=== PATIENT | male | born 1955 | race Caucasian/White ===

== ENCOUNTER 2017-04-09 08:16 | Inpatient (IN) ==
[~2017-04-09 08:16] MED LIST: HEPARIN 5,000 UNIT/1 ML VIAL ONE; HYDROmorphone 2 MG/1 ML VIAL ONE; LIDOCAINE 1% 20 ML VIAL ONE; MIDAZOLAM 2 MG/2 ML VIAL ONE
[2017-04-09] MEDS ORDERED: TIROFIBAN 5,000 MCG/100 ML PREMIX IV ONE (08:17)
[2017-04-09] MEDS ORDERED: TIROFIBAN 5,000 MCG/100 ML PREMIX IV SCH (08:22)
[2017-04-09] MEDS ORDERED: NITROGLYCERIN SL 0.4 MG TABLET SL PRN (08:42)
[2017-04-09] MEDS ORDERED: ZALEPLON 5 MG CAPSULE PO PRN (08:42)
--- NOTE | 2017-04-09 08:51 | Cardiology History & Physical ---
Assessment and Plan (1) STEMI (ST elevation myocardial infarction) Status: Acute Assessment and plan: 1. 62-year-old WM with hypertension, NIDDM, who presented with 2 days of back pain and then awakened at 5:30 AM with severe back pain radiating to the chest with shortness of breath diaphoresis diagnosed with inferior AK at [facility] transferred here for emergent catheterization 2. He arrived having received Brilinta, aspirin, and heparin 3. At catheterization he had critical 99% discrete distal RCA stenosis with VERN-3 flow, stented with 2.5 x 20 drug-eluting stent with excellent result ( after dilating proximal portion of the stent to 3.1 mm) 4. Add low-dose beta-reji and high intensity statin 5. Admit to CCU for close observation 6. Normal ejection fraction with mild inferobasal hypokinesis noted on LV gram 7. Will complete one bag of Aggrastat Current Visit: Yes (2) HTN (hypertension) Status: Acute Current Visit: Yes (3) Diabetes Status: Acute Current Visit: Yes (4) Prostate CA Status: Acute Current Visit: Yes (5) Peptic ulcer Status: Acute Current Visit: Yes History of Present Illness Chief complaint: cp History of present illness: Mr. Love is a 62 year old male who is in his usual state of health until the last 2 days he has had upper back pain which has been constant. At 530 this morning woke up with shortness of breath more severe back pain and slight involvement of his chest as well as diaphoresis. It did not radiate. He does not report presyncope or syncope. At [facility] he was diagnosed with inferior STEMI and transferred for emergent catheterization. Allergies Allergy/AdvReac Type Severity Reaction Status Date / Time diazepam [From Valium] Allergy Verified 04/09/17 08:06 morphine Allergy Verified 04/09/17 08:06 Cardiology Physical Exam - Constitutional Vitals: Intake and Output 04/08/17 04/09/17 04/09/17 23:59 07:59 15:59 Other: Weight 92.533 kg Patient Weight 04/09/17 23:59 Weight 92.533 kg General appearance: normal weight, mild distress - Head Head exam: Present: normal inspection, normocephalic, atraumatic - Cardiovascular Cardiovascular exam: Present: regular rate and rhythm - GI/Abdominal GI/Abdominal exam: Present: soft. Absent: tenderness - Extremities Exam Extremities exam: Absent: edema - Neurological Exam Neurological exam: Present: alert, oriented X3, normal gait - Psychiatric Psychiatric exam: Present: normal affect, normal mood
--- NOTE | 2017-04-09 09:07 | Cardiac Catheterization ---
Date of Procedure:: 04/09/17 Post-op diagnosis: same Procedure: Procedure performed: 1. Left heart catheterization 2. Coronary angiography 3. Left ventriculography 4. Stenting of distal right coronary artery with drug-eluting stent for acute WA/STEMI (2.5 x 20 Synergy dilated to 3.1 mm proximally) 5. Right femoral arteriotomy with Angio-Seal device Brief clinical summary: Mr. Solitario 62-year-old who presented with inferior WA directly to the [facility] transfer. Description of procedure: After obtaining informed consent, the right groin was prepped and draped in the usual sterile fashion. Next a short 6 Estonian sheath was placed in the right femoral artery using a modified Seldinger technique, after the patient received IV sedation and local anesthetic. Next a JL4 catheter was advanced over a guidewire under fluoroscopic guidance, and was engaged to the left coronary artery after which angiography was performed in multiple views. This was then removed over a wire, and a hockey-stick guiding catheter was advanced in similar fashion, and was engaged to the right coronary artery after which angiography was performed in multiple views. After this percutaneous coronary mention was performed as described below. Next a bent pigtail catheter was advanced into the left ventricle, where hemodynamic measurements were obtained, and left ventriculography was performed. An angiogram of the sheath showed that it was inserted in the right common femoral artery in a vessel suitable for closure. Hemostasis was obtained with Angio- Seal device with no residual bleeding. The patient was transferred from the director of labor and delivery in good condition without complication. Percutaneous coronary mention: The patient by the Tele[facility] on heparin and Brilinta as well as aspirin. I gave an additional 3000 of heparin as he only got 4000 prior to transfer. His ACT was therapeutic in the 254 range. A pro- water wire was advanced across the critical distal RCA disease without difficulty. Next a 2.25 x 20 compliant balloon was advanced across her disease was dilated to just above nominal pressures at a slow rate. This was then removed and a 2.5 x 20 Synergy drug-eluting stent was advanced across her disease and dilated to nominal pressures. I performed low-pressure 2-1/2 purnima inflation at the distal edge due to slight size mismatching. This was then removed and a 3.0 x 15 compliant balloon was advanced to the proximal portion the stent was dilated to nearly 3.1 mm. There is very good radiographic result. Just past the stent was very hyperdynamic area. Coronary angiography: The left main coronary is no result of her disease. Left anterior descending artery is of average caliber wraps around the apex. There is a 60% proximal stenosis, as well as a 60% mid stenosis and 80% discrete distal LAD stenosis. There is one average caliber long high diagonal branch. There is a tiny second diagonal. Circumflex is of average caliber and gives off only 1 very large obtuse marginal branch which is the termination of the vessel. There are mild to moderate regular is only. Right coronary artery is the dominant vessel is of average caliber. There is a discrete 99% distal RCA stenosis with a thinner than average PDA in a couple of very thin posterolaterals. There is VERN II flow prior intervention. There is a significant size mismatch proximal to the lesion and distal to lesion with dilation of the vessel much more distally which may be due to an ectatic region. Left ventriculography: Left ventricle is normal size with normal LV systolic function. Ejection fraction 60% with mild inferobasal hypokinesis. There is no significant mitral regurgitation. Impression: 1. Normal LV systolic function ejection fraction is to be 60% with mild inferobasal hypokinesis 2. Right dominant system 3. Coronary artery disease as described above including but not limited to: A. Diffuse LAD disease with 60% proximal and mid stenosis as well as 80% distal stenosis B. Mild to moderate irregularity is only in the circumflex system C. Discrete 99% distal RCA stenosis 4. Status post successful stenting of critical distal RCA lesion (culprit for STEMI) with 2.5 x 20 drug-eluting stent with excellent result after post dilating proximally to nearly 3.1 mm); VERN-3 flow was restored. Recommend patient discussion: I believe achieved very good result with regard to stenting Mr. Solitario's culprit vessel in restoring normal flow. He will continue on aspirin and Brilinta will be watched closely in the CCU. I am adding low-dose beta-reji and high intensity statin therapy. Will get 1 bag of Aggrenox infusion. I would consider medical therapy versus reevaluation of his LAD with noninvasive versus invasive testing in the future. He needs to avoid squatting strain or lifting for the next week. Anesthesia: minimal conscious sedation Surgeon / Physician: Juan Hanson Monorail Crane Operator: other Estimated blood loss: minimal Specimens: none sent Condition: stable Disposition: ICU/CCU - Medications / Follow-up
--- NOTE | 2017-04-09 10:25 | EKG Report ---
Stationary ECG Study [facility] Test Date: 04/09/2017 10:24:23 AM Pat Name: JULIO FULTON Department: Room: 123 Gender: M Senior Property Manager: SILVANA : 1955 Requested by: Juan Benjamin Order Number: [id number] Reading MD: ANGELO LARA Intervals [place] Rate: 58 P: 37 MT: 160 QRS: -4 QRSD: 106 T: 55 QT: 475 QTc: 473 Interpretive Statements SINUS RHYTHM At 58 bpm WNL Electronically Signed On 04-14-17 15:32:19 CDT by ANGELO LARA [email or web address]
[2017-04-09 11:07] LABS: Troponin I Only 0.256 NG/ML (0.00-0.045)
[2017-04-09] MEDS: ASPIRIN EC 81 MG TABLET PO SCH (11:15)
[2017-04-09] MEDS: METOPROLOL TARTRATE 50 MG TABLET PO SCH ×2 (11:15→20:12)
[2017-04-09] MEDS: ROSUVASTATIN 20 MG TABLET PO SCH (11:15)
[2017-04-09] MEDS: TICAGRELOR 90 MG TABLET PO SCH ×2 (11:16→20:12)
[2017-04-09 12:46] LABS: Troponin I Only 0.541 NG/ML (0.00-0.045)
[2017-04-09] MEDS: PANTOPRAZOLE 40 MG TABLET PO SCH (14:31)
[2017-04-09 15:21] LABS: Troponin I Only 0.709 NG/ML (0.00-0.045)
[2017-04-09] MEDS: INSULIN REGULAR 100 UNIT/ML SUBCUT SCH ×2 (16:30→20:12)
[2017-04-10 05:31] LABS: Basophils % 0.6 % (0.0-0.8); Eosinophils # 0.1 10*3/uL (0.0-0.87); Eosinophils % 1.8 % (0.00-10.9); Hematocrit 38.9 VOL% (42.0-52.0); Hemoglobin 12.8 GM/DL (14.0-18.0); Immature Granulocytes % 0.6 %; Immature Granulocytes Absolute 0.04 #; Lymphocytes # 0.9 10*3/uL (1.4-4.0); Lymphocytes % 14.2 % (21.2-54.2); Mean Corpuscular HGB Conc 32.9 GM/DL (32-36); Mean Corpuscular Hemoglobin 28 PG (27-34); Mean Corpuscular Volume 86.3 FL (87-102); Mean Platelet Volume 13.1 FL (9.6-12.0); Monocytes # 0.6 10*3/uL (0.11-0.8); Monocytes % 9.2 % (1.7-12.7); Neutrophils # 4.9 10*3/uL (1.4-7.4); Neutrophils % 73.6 % (38.7-73.9); Platelet Count 115 T/CUMM (130-400); Red Blood Count 4.51 MC/CUMM (3.8-5.5); White Blood Count 6.6 T/CUMM (4-12)
[2017-04-10 06:07] LABS: Albumin 3.3 G/DL (3.4-5.0); Bilirubin,Total 0.7 MG/DL (0.2-1.0); Calcium 8.6 MG/DL (8.5-10.1); Magnesium 2.4 MG/DL (1.8-2.4); Osmolality,Calculated 290.1 MOS/KG (273-304); Potassium 3.8 MMOL/L (3.5-5.1); Total Protein 6.3 G/DL (6.4-8.3)
[2017-04-10 06:09] LABS: Risk Ratio 4.63; VLDL CHOLESTEROL 64.2 MG/DL
[2017-04-10] MEDS: INSULIN REGULAR 100 UNIT/ML SUBCUT SCH ×4 (07:39→21:50)
--- NOTE | 2017-04-10 08:01 | EKG Report ---
Stationary ECG Study [facility] Test Date: 04/10/2017 6:56:35 AM Pat Name: JULIO FULTON Department: Room: 123 Gender: M Agency Legal Counsel: SILVANA : 1955 Requested by: Juan Benjamin Order Number: [id number] Reading MD: ANGELO LARA Intervals [place] Rate: 55 P: 73 WI: 162 QRS: 60 QRSD: 98 T: 28 QT: 462 QTc: 451 Interpretive Statements SINUS RHYTHM At 55 bpm Otherwise WNL Electronically Signed On 04-14-17 15:54:12 CDT by ANGELO LARA [email or web address]
[2017-04-10] MEDS ORDERED: VALSARTAN/HCTZ 80-12.5 MG TABLET PO SCH (09:00)
[2017-04-10] MEDS: VALSARTAN 80 MG TABLET PO SCH ×2 (09:18→21:05)
[2017-04-10] MEDS: CARVEDILOL 3.125 MG TABLET PO SCH ×2 (09:18→21:05)
[2017-04-10] MEDS: ROSUVASTATIN 20 MG TABLET PO SCH (09:18)
[2017-04-10] MEDS: ASPIRIN EC 81 MG TABLET PO SCH (09:18)
[2017-04-10] MEDS: TICAGRELOR 90 MG TABLET PO SCH ×2 (09:19→21:06)
[2017-04-10] MEDS: buPROPion XL 150 MG TABLET PO SCH (09:19)
[2017-04-10] MEDS: PANTOPRAZOLE 40 MG TABLET PO SCH (09:19)
[2017-04-10] MEDS: ONDANSETRON 4 MG/2 ML VIAL IV PRN ×2 (11:21→17:00)
--- NOTE | 2017-04-10 15:59 | Cardiology Progress Note ---
Efrain Tran Vanessa, RN, am scribing for, and in the presence of, Juan Lara MD 15:58. Assessment and Plan - Time spent with patient Time spent with patient: Greater than 30 minutes (1) STEMI (ST elevation myocardial infarction) Problem details: 04/09/17: 2.5 x 20 mm Synergy RAYMOND to dRCA Status: Acute Assessment and plan: INITIAL ADMISSION APRIL 09, 2017: ASSESSMENT/PLAN: 1. 62-year-old WM with hypertension, NIDDM, who presented with 2 days of back pain and then awakened at 5:30 AM with severe back pain radiating to the chest with shortness of breath diaphoresis diagnosed with inferior LA at [place] transferred here for emergent catheterization 2. He arrived having received Brilinta, aspirin, and heparin 3. At catheterization he had critical 99% discrete distal RCA stenosis with VERN-3 flow, stented with 2.5 x 20 drug-eluting stent with excellent result ( after dilating proximal portion of the stent to 3.1 mm) 4. Add low-dose beta-reji and high intensity statin 5. Admit to CCU for close observation 6. Normal ejection fraction with mild inferobasal hypokinesis noted on LV gram 7. Will complete one bag of Aggrastat UPDATE APRIL 10, 2017: ASSESSMENT/PLAN: 1. 62-year-old status post inferior LA yesterday morning with stenting of critical discrete RCA with RAYMOND, intermediate disease in the LAD system is being treated medically. 2. He is doing well from a cardiac standpoint with resolution of his chest/ back pain, but is complaining of worsening of his usual vertigo, with significant nasal congestion, and some mild lightheadedness when he gets up. 3. We will plan observation overnight, will give Nasonex, meclizine, guaifenesin 4. Right groin access sites without bleeding bruit or hematoma 5. If he does not improve we will consider changing Brilinta to Plavix? Current Visit: Yes Qualifiers: Involved coronary artery: right coronary artery Qualified Code(s): I21.11 - ST elevation (STEMI) myocardial infarction involving right coronary artery (2) Diabetes Status: Acute Current Visit: Yes (3) HTN (hypertension) Status: Acute Current Visit: Yes (4) Peptic ulcer Status: Acute Current Visit: Yes (5) Prostate CA Status: Acute Current Visit: Yes Cardiology - PN: Subj Interval history: PRIMARY [facility]OVING TE[employer] LABORATORY: DR. ANGELO LARA (NEW) Mr. Solitario is a 62 year old white male who presented on the morning of 04/09/17 as a transfer from [facility] experiencing an acute inferior STEMI. Upon arrival to [facility], patient was taken during to cardiac Obstetric Assistant for emergent catheterization per Dr. Lara. He underwent percutaneous coronary intervention of the distal right coronary artery with drug-eluting stent without complication. Cardiac cath with the following findings: Impression: 1. Normal LV systolic function ejection fraction is to be 60% with mild inferobasal hypokinesis 2. Right dominant system 3. Coronary artery disease as described above including but not limited to: A. Diffuse LAD disease with 60% proximal and mid stenosis as well as 80% distal stenosis B. Mild to moderate irregularity is only in the circumflex system C. Discrete 99% distal RCA stenosis 4. Status post successful stenting of critical distal RCA lesion (culprit for STEMI) with 2.5 x 20 drug-eluting stent with excellent result after post dilating proximally to nearly 3.1 mm); VERN-3 flow was restored. Recommend patient discussion: I believe achieved very good result with regard to stenting Mr. Solitario's culprit vessel in restoring normal flow. He will continue on aspirin and Brilinta will be watched closely in the CCU. I am adding low-dose beta-reji and high intensity statin therapy. Will get 1 bag of Aggrenox infusion. I would consider medical therapy versus reevaluation of his LAD with noninvasive versus invasive testing in the future. He needs to avoid squatting strain or lifting for the next week. Since arrival to CCU, hospital course has been uneventful. He has had no chest pain, dyspnea, nausea, palpitation, presyncope, or other anginal complaint. Patient has remained in a sinus rhythm with pulse rate in the 50s and 60s without overt ectopy or sustained dysrhythmia appreciated. Blood pressure has been overall fairly well controlled with systolic BP 125-140 mmHg. Labs reviewed. H&H is stable this morning. Platelet count 150,000. Potassium 3.8 and magnesium 2.4. Serial cardiac biomarkers have revealed most recent troponin this morning is 0.709 and CPK of 148, CK-MB 4.5. Fasting lipid panel this morning noted with triglyceride level 321 and total cholesterol 213. Renal function is stable status post cardiac cath with creatinine 0.9 and GFR of 112. Patient is awake and alert this morning, and he is sitting up in bedside chair performing ADLs. Only complaint at this time is some "nasal congestion" and some transient dizziness. Does report that he is "sensitive" to taking medications. He contributes the nasal congestion to use of nasal cannula which has been off for the past 2 hours, and he has had some improvement in congestion. Reports he often experiences dizziness and admits he has had trouble with vertigo in the past. He has not had any other presyncopal S/S. RFA cath site dressing removed and groin is soft without hematoma or femoral bruit appreciated. Distal lower extremity pulses 2+ bilaterally. We will plan for transfer to telemetry floor today. Exam (Progress Note) - Constitutional Vitals: Period Temp Pulse Resp BP Sys/Ruiz Pulse Ox Last 24 Hr 96.7 F-98.5 F 50-75 8-23 106-144/54-78 95-98 General appearance: no acute distress, over weight - Head Head exam: Present: normal inspection. Absent: abrasion, contusion, laceration - Eye Eye exam: Absent: periorbital swelling, scleral icterus Pupils: Present: RA. Absent: dilated, fixed - ENT ENT exam: Present: normal external ear exam - Neck Neck exam: Present: normal inspection. Absent: tenderness - Respiratory Respiratory exam: Present: clear to auscultation bilaterally. Absent: decreased breath sounds, rales, rhonchi, stridor, wheezes - Cardiovascular Cardiovascular exam: Present: bradycardia, regular rate and rhythm. Absent: JVD , systolic murmur, tachycardia - GI/Abdominal GI/Abdominal exam: Present: normal bowel sounds, soft. Absent: ascites, distended, firm, mass, tenderness - Extremities Exam Extremities exam: Present: normal capillary refill, full ROM. Absent: calf tenderness, edema - Back Exam Back exam: Present: normal inspection - Neurological Exam Neurological exam: Present: alert, oriented X3. Absent: altered - Psychiatric Psychiatric exam: Present: normal affect, normal mood. Absent: agitated, anxious, depressed - Skin Skin exam: Present: normal color, warm, dry. Absent: abrasion, cyanosis, diaphoretic, rash Result/EKG - Labs CBC & BMP: 05/11/17 05:05 04/10/17 05:05 Lab Results: I have reviewed the past 24 hour labs Labs: Laboratory Results - last 24 hr 04/09/17 04/09/17 04/09/17 09:46 11:32 12:35 WBC RBC Hgb Hct MCV MCH MCHC RDW Plt Count MPV Neut % (Auto) Lymph % (Auto) Mccormick % (Auto) Eos % (Auto) Baso % (Auto) Neut # (Auto) Lymph # (Auto) Mccormick # (Auto) Eos # (Auto) Baso # (Auto) Immature Gran % Nucleated RBC % Immature Gran # Nucleated RBCs # Sodium Potassium Chloride Carbon Dioxide Anion Gap BUN Creatinine GFR Calculation BUN/Creatinine Ratio Glucose POC Glucose 236 H Calculated Osmolality Calcium Magnesium Total Bilirubin AST ALT Alkaline Phosphatase Total Creatine Kinase 107 102 CK-MB (CK-2) 2.8 3.8 H Troponin I 0.256 H 0.541 H D Total Protein Albumin Globulin Albumin/Globulin Ratio Triglycerides Cholesterol LDL Cholesterol VLDL Cholesterol HDL Cholesterol Heart Disease Risk Ratio 04/09/17 04/09/17 04/09/17 14:41 16:11 20:02 WBC RBC Hgb Hct MCV MCH MCHC RDW Plt Count MPV Neut % (Auto) Lymph % (Auto) Mccormick % (Auto) Eos % (Auto) Baso % (Auto) Neut # (Auto) Lymph # (Auto) Mccormick # (Auto) Eos # (Auto) Baso # (Auto) Immature Gran % Nucleated RBC % Immature Gran # Nucleated RBCs # Sodium Potassium Chloride Carbon Dioxide Anion Gap BUN Creatinine GFR Calculation BUN/Creatinine Ratio Glucose POC Glucose 286 H 242 H Calculated Osmolality Calcium Magnesium Total Bilirubin AST ALT Alkaline Phosphatase Total Creatine Kinase 148 D CK-MB (CK-2) 4.5 H Troponin I 0.709 H D Total Protein Albumin Globulin Albumin/Globulin Ratio Triglycerides Cholesterol LDL Cholesterol VLDL Cholesterol HDL Cholesterol Heart Disease Risk Ratio 04/10/17 04/10/17 04/10/17 05:05 05:05 05:05 WBC 6.6 RBC 4.51 Hgb 12.8 L Hct 38.9 L MCV 86.3 L MCH 28 MCHC 32.9 RDW 15.0 Plt Count 115 L MPV 13.1 H Neut % (Auto) 73.6 Lymph % (Auto) 14.2 L Mccormick % (Auto) 9.2 Eos % (Auto) 1.8 Baso % (Auto) 0.6 Neut # (Auto) 4.9 Lymph # (Auto) 0.9 L Mccormick # (Auto) 0.6 Eos # (Auto) 0.1 Baso # (Auto) 0.0 Immature Gran % 0.6 Nucleated RBC % 0.0 Immature Gran # 0.04 Nucleated RBCs # 0.00 Sodium 142 Potassium 3.8 Chloride 107 Carbon Dioxide 25 Anion Gap 13.8 BUN 19 H Creatinine 0.90 GFR Calculation 112 BUN/Creatinine Ratio 21.00 H Glucose 202 H POC Glucose Calculated Osmolality 290.1 Calcium 8.6 Magnesium 2.4 Total Bilirubin 0.70 AST 31 ALT 25 Alkaline Phosphatase 59 Total Creatine Kinase CK-MB (CK-2) Troponin I Total Protein 6.3 L Albumin 3.3 L Globulin 3.0 Albumin/Globulin Ratio 1.1 Triglycerides 321 H Cholesterol 213 H LDL Cholesterol 114.0 VLDL Cholesterol 64.2 HDL Cholesterol 46 Heart Disease Risk Ratio 4.63 04/10/17 07:09 WBC RBC Hgb Hct MCV MCH MCHC RDW Plt Count MPV Neut % (Auto) Lymph % (Auto) Mccormick % (Auto) Eos % (Auto) Baso % (Auto) Neut # (Auto) Lymph # (Auto) Mccormick # (Auto) Eos # (Auto) Baso # (Auto) Immature Gran % Nucleated RBC % Immature Gran # Nucleated RBCs # Sodium Potassium Chloride Carbon Dioxide Anion Gap BUN Creatinine GFR Calculation BUN/Creatinine Ratio Glucose POC Glucose 195 H Calculated Osmolality Calcium Magnesium Total Bilirubin AST ALT Alkaline Phosphatase Total Creatine Kinase CK-MB (CK-2) Troponin I Total Protein Albumin Globulin Albumin/Globulin Ratio Triglycerides Cholesterol LDL Cholesterol VLDL Cholesterol HDL Cholesterol Heart Disease Risk Ratio - EKG EKG results: interpreted by me, no acute changes EKG shows: sinus rhythm Specialty Discharge - Follow Up or Referrals Margie Tran Randall Scott, MD, personally performed the services described in this documentation, ascribed by Yue Zuniga RN in my presence, and it is both accurate and complete [id number] .
[2017-04-10] MEDS: MECLIZINE 25 MG TABLET PO SCH ×2 (17:00→21:05)
[2017-04-10] MEDS: MOMETASONE 50 MCG NASAL SPRAY 17 GM BOTTLE BOTH NARES SCH (21:54)
[2017-04-11 06:27] LABS: Calcium 8.9 MG/DL (8.5-10.1); Magnesium 2.5 MG/DL (1.8-2.4); Potassium 3.6 MMOL/L (3.5-5.1)
[2017-04-11] MEDS: INSULIN REGULAR 100 UNIT/ML SUBCUT SCH ×4 (10:27→20:54)
[2017-04-11] MEDS: PANTOPRAZOLE 40 MG TABLET PO SCH (10:28)
[2017-04-11] MEDS: ROSUVASTATIN 20 MG TABLET PO SCH (10:28)
[2017-04-11] MEDS: ASPIRIN EC 81 MG TABLET PO SCH (10:28)
[2017-04-11] MEDS: buPROPion XL 150 MG TABLET PO SCH (10:28)
[2017-04-11] MEDS: VALSARTAN 80 MG TABLET PO SCH ×2 (10:28→20:54)
[2017-04-11] MEDS: CARVEDILOL 3.125 MG TABLET PO SCH ×2 (10:28→20:54)
[2017-04-11] MEDS: TICAGRELOR 90 MG TABLET PO SCH ×2 (10:28→10:33)
[2017-04-11] MEDS: MOMETASONE 50 MCG NASAL SPRAY 17 GM BOTTLE BOTH NARES SCH ×2 (10:29→20:57)
[2017-04-11] MEDS: MECLIZINE 25 MG TABLET PO SCH ×4 (10:29→20:54)
[2017-04-11] MEDS ORDERED: CLOPIDOGREL 300 MG TABLET PO ONE (10:53)
--- NOTE | 2017-04-11 11:10 | Cardiology Progress Note ---
Efrain Tran Vanessa, RN, am scribing for, and in the presence of, Juan Lara MD 11:10. Assessment and Plan - Time spent with patient Time spent with patient: Greater than 30 minutes (1) STEMI (ST elevation myocardial infarction) Problem details: 04/09/17: 2.5 x 20 mm Synergy RAYMOND to dRCA Status: Acute Assessment and plan: INITIAL ADMISSION APRIL 09, 2017: ASSESSMENT/PLAN: 1. 62-year-old WM with hypertension, NIDDM, who presented with 2 days of back pain and then awakened at 5:30 AM with severe back pain radiating to the chest with shortness of breath diaphoresis diagnosed with inferior CA at [facility] transferred here for emergent catheterization 2. He arrived having received Brilinta, aspirin, and heparin 3. At catheterization he had critical 99% discrete distal RCA stenosis with VERN-3 flow, stented with 2.5 x 20 drug-eluting stent with excellent result ( after dilating proximal portion of the stent to 3.1 mm) 4. Add low-dose beta-reji and high intensity statin 5. Admit to CCU for close observation 6. Normal ejection fraction with mild inferobasal hypokinesis noted on LV gram 7. Will complete one bag of Aggrastat UPDATE APRIL 10, 2017: ASSESSMENT/PLAN: 1. 62-year-old status post inferior CA yesterday morning with stenting of critical discrete RCA with RAYMOND, intermediate disease in the LAD system is being treated medically. 2. He is doing well from a cardiac standpoint with resolution of his chest/ back pain, but is complaining of worsening of his usual vertigo, with significant nasal congestion, and some mild lightheadedness when he gets up. 3. We will plan observation overnight, will give Nasonex, meclizine, guaifenesin 4. Right groin access sites without bleeding bruit or hematoma 5. If he does not improve we will consider changing Brilinta to Plavix? UPDATE APRIL 11, 2017: ASSESSMENT/PLAN: 1. Mr. Solitario is doing well from a post CA standpoint after in for CA with normal LV systolic function and stenting of his discrete critical distal RCA lesion april 09 2. His vertigo has responded to meclizine, but he still has significant symptoms worsen he has had in the past; I am suspicious that Brilinta is worsening his symptoms, so we will load with Plavix 300 this morning and given Plavix 75 g a day thereafter. 3. Given his generally ill feeling we will keep him overnight hopefully can discharge tomorrow if he is feeling better 4. Recommend follow-up with CV rehab 5. Continue Nasonex and guaifenesin 6. Benign right groin site Current Visit: Yes Qualifiers: Involved coronary artery: right coronary artery Qualified Code(s): I21.11 - ST elevation (STEMI) myocardial infarction involving right coronary artery (2) Diabetes Status: Acute Current Visit: Yes (3) HTN (hypertension) Status: Acute Current Visit: Yes (4) Peptic ulcer Status: Acute Current Visit: Yes (5) Prostate CA Status: Acute Current Visit: Yes Cardiology - PN: Subj Interval history: PRIMARY SAMPLE WASHER: DR. ANGELO LARA (NEW) SUMMARY: Mr. Solitario is a 62 year old white male who presented on the morning of 04/09/17 as a transfer from [facility] experiencing an acute inferior STEMI. Upon arrival to [facility], patient was taken during to cardiac [employer]or for emergent catheterization per Dr. Lara. He underwent percutaneous coronary intervention of the distal right coronary artery with drug-eluting stent without complication. Cardiac cath with the following findings: Impression: 1. Normal LV systolic function ejection fraction is to be 60% with mild inferobasal hypokinesis 2. Right dominant system 3. Coronary artery disease as described above including but not limited to: A. Diffuse LAD disease with 60% proximal and mid stenosis as well as 80% distal stenosis B. Mild to moderate irregularity is only in the circumflex system C. Discrete 99% distal RCA stenosis 4. Status post successful stenting of critical distal RCA lesion (culprit for STEMI) with 2.5 x 20 drug-eluting stent with excellent result after post dilating proximally to nearly 3.1 mm); VERN-3 flow was restored. Recommend patient discussion: I believe achieved very good result with regard to stenting Mr. Solitario's culprit vessel in restoring normal flow. He will continue on aspirin and Brilinta will be watched closely in the CCU. I am adding low-dose beta-reji and high intensity statin therapy. Will get 1 bag of Aggrenox infusion. I would consider medical therapy versus reevaluation of his LAD with noninvasive versus invasive testing in the future. He needs to avoid squatting strain or lifting for the next week. Since arrival to CCU, hospital course has been uneventful. He has had no chest pain, dyspnea, nausea, palpitation, presyncope, or other anginal complaint. Patient has remained in a sinus rhythm with pulse rate in the 50s and 60s without overt ectopy or sustained dysrhythmia appreciated. Blood pressure has been overall fairly well controlled with systolic BP 125-140 mmHg. Labs reviewed. H&H is stable this morning. Platelet count 150,000. Potassium 3.8 and magnesium 2.4. Serial cardiac biomarkers have revealed most recent troponin this morning is 0.709 and CPK of 148, CK-MB 4.5. Fasting lipid panel this morning noted with triglyceride level 321 and total cholesterol 213. Renal function is stable status post cardiac cath with creatinine 0.9 and GFR of 112. Patient is awake and alert this morning, and he is sitting up in bedside chair performing ADLs. Only complaint at this time is some "nasal congestion" and some transient dizziness. Does report that he is "sensitive" to taking medications. He contributes the nasal congestion to use of nasal cannula which has been off for the past 2 hours, and he has had some improvement in congestion. Reports he often experiences dizziness and admits he has had trouble with vertigo in the past. He has not had any other presyncopal S/S. RFA cath site dressing removed and groin is soft without hematoma or femoral bruit appreciated. Distal lower extremity pulses 2+ bilaterally. APRIL 11, 2017: Patient has done relatively well since transfer to telemetry yesterday afternoon without chest pain or shortness of breath. He does have continued dizziness today. He has had some improvement of nasal congestion. Vitals have been stable. Sinus rhythm per tele monitoring without ectopy or overt arrhythmia. Brilinta morning dose held this morning to load with Plavix 300 mg by mouth and change therapy to Plavix 75 mg by mouth daily starting tomorrow. Lab work reviewed and is unremarkable. Exam (Progress Note) - Constitutional Vitals: Period Temp Pulse Resp BP Sys/Ruiz Pulse Ox Last 24 Hr 97.5 F-99.1 F 57-66 16-20 125-159/73-83 94-100 Exam: General appearance: no acute distress, over weight - Head Head exam: Present: normal inspection. Absent: abrasion, contusion, laceration - Eye Eye exam: Absent: periorbital swelling, scleral icterus Pupils: Present: RA. Absent: dilated, fixed - ENT ENT exam: Present: normal external ear exam - Neck Neck exam: Present: normal inspection. Absent: tenderness - Respiratory Respiratory exam: Present: clear to auscultation bilaterally. Absent: decreased breath sounds, rales, rhonchi, stridor, wheezes - Cardiovascular Cardiovascular exam: Present: bradycardia, regular rate and rhythm. Absent: JVD , systolic murmur, tachycardia - GI/Abdominal GI/Abdominal exam: Present: normal bowel sounds, soft. Absent: ascites, distended, firm, mass, tenderness - Extremities Exam Extremities exam: Present: normal capillary refill, full ROM. Absent: calf tenderness, edema - Back Exam Back exam: Present: normal inspection - Neurological Exam Neurological exam: Present: alert, oriented X3. Absent: altered - Psychiatric Psychiatric exam: Present: normal affect, normal mood. Absent: agitated, anxious, depressed - Skin Skin exam: Present: normal color, warm, dry. Absent: abrasion, cyanosis, diaphoretic, rash Result/EKG - Labs CBC & BMP: 04/10/17 05:05 04/11/17 04:52 Lab Results: I have reviewed the past 24 hour labs Labs: Laboratory Results - last 24 hr 04/10/17 04/10/17 04/10/17 11:28 16:16 21:43 Sodium Potassium Chloride Carbon Dioxide Anion Gap BUN Creatinine GFR Calculation BUN/Creatinine Ratio Glucose POC Glucose 297 H 229 H 176 H Calculated Osmolality Calcium Magnesium 04/11/17 04/11/17 04:52 07:33 Sodium 143 Potassium 3.6 Chloride 107 Carbon Dioxide 22 Anion Gap 17.6 H BUN 19 H Creatinine 0.80 GFR Calculation 116 BUN/Creatinine Ratio 23.00 H Glucose 191 H POC Glucose 242 H Calculated Osmolality 291.0 Calcium 8.9 Magnesium 2.5 H - EKG EKG results: interpreted by me, no acute changes EKG shows: sinus rhythm Specialty Discharge - Follow Up or Referrals IMargie Randall Scott, MD, personally performed the services described in this documentation, ascribed by Yue Zuniga RN in my presence, and it is both accurate and complete .
[2017-04-11] MEDS: ONDANSETRON 4 MG/2 ML VIAL IV PRN (12:47)
[2017-04-12 04:45] LABS: Basophils # 0.1 10*3/uL (0.0-0.2); Basophils % 0.8 % (0.0-0.8); Eosinophils # 0.1 10*3/uL (0.0-0.87); Hematocrit 43.9 VOL% (42.0-52.0); Hemoglobin 14.5 GM/DL (14.0-18.0); Immature Granulocytes % 0.6 %; Immature Granulocytes Absolute 0.04 #; Lymphocytes # 1.1 10*3/uL (1.4-4.0); Lymphocytes % 15.2 % (21.2-54.2); Mean Corpuscular Hemoglobin 29 PG (27-34); Mean Corpuscular Volume 86.6 FL (87-102); Mean Platelet Volume 12.9 FL (9.6-12.0); Monocytes # 0.8 10*3/uL (0.11-0.8); Monocytes % 10.5 % (1.7-12.7); Neutrophils # 5.1 10*3/uL (1.4-7.4); Neutrophils % 71.9 % (38.7-73.9); Platelet Count 121 T/CUMM (130-400); Red Blood Count 5.07 MC/CUMM (3.8-5.5); Red Cell Distribution Width 15.1 % (9.3-17.3); White Blood Count 7.1 T/CUMM (4-12)
[2017-04-12 05:11] LABS: Magnesium 2.3 MG/DL (1.8-2.4); Potassium 3.5 MMOL/L (3.5-5.1)
[2017-04-12] MEDS: INSULIN REGULAR 100 UNIT/ML SUBCUT SCH ×4 (08:42→21:33)
[2017-04-12] MEDS: ROSUVASTATIN 20 MG TABLET PO SCH (08:43)
[2017-04-12] MEDS: CLOPIDOGREL 75 MG TABLET PO SCH (08:43)
[2017-04-12] MEDS: MECLIZINE 25 MG TABLET PO SCH ×4 (08:43→21:33)
[2017-04-12] MEDS: buPROPion XL 150 MG TABLET PO SCH (08:44)
[2017-04-12] MEDS: VALSARTAN 80 MG TABLET PO SCH ×2 (08:44→21:33)
[2017-04-12] MEDS: CARVEDILOL 3.125 MG TABLET PO SCH (08:44)
[2017-04-12] MEDS: ASPIRIN EC 81 MG TABLET PO SCH (08:44)
[2017-04-12] MEDS: PANTOPRAZOLE 40 MG TABLET PO SCH (08:44)
[2017-04-12] MEDS: MOMETASONE 50 MCG NASAL SPRAY 17 GM BOTTLE BOTH NARES SCH ×2 (08:47→21:36)
--- NOTE | 2017-04-12 10:51 | Cardiology Progress Note ---
Assessment and Plan (1) STEMI (ST elevation myocardial infarction) Problem details: 04/09/17: 2.5 x 20 mm Synergy RAYMOND to dRCA Status: Acute Assessment and plan: INITIAL ADMISSION APRIL 09, 2017: ASSESSMENT/PLAN: 1. 62-year-old WM with hypertension, NIDDM, who presented with 2 days of back pain and then awakened at 5:30 AM with severe back pain radiating to the chest with shortness of breath diaphoresis diagnosed with inferior GA at [facility] transferred here for emergent catheterization 2. He arrived having received Brilinta, aspirin, and heparin 3. At catheterization he had critical 99% discrete distal RCA stenosis with VERN-3 flow, stented with 2.5 x 20 drug-eluting stent with excellent result ( after dilating proximal portion of the stent to 3.1 mm) 4. Add low-dose beta-reji and high intensity statin 5. Admit to CCU for close observation 6. Normal ejection fraction with mild inferobasal hypokinesis noted on LV gram 7. Will complete one bag of Aggrastat UPDATE APRIL 10, 2017: ASSESSMENT/PLAN: 1. 62-year-old status post inferior GA yesterday morning with stenting of critical discrete RCA with RAYMOND, intermediate disease in the LAD system is being treated medically. 2. He is doing well from a cardiac standpoint with resolution of his chest/ back pain, but is complaining of worsening of his usual vertigo, with significant nasal congestion, and some mild lightheadedness when he gets up. 3. We will plan observation overnight, will give Nasonex, meclizine, guaifenesin 4. Right groin access sites without bleeding bruit or hematoma 5. If he does not improve we will consider changing Brilinta to Plavix? UPDATE APRIL 11, 2017: ASSESSMENT/PLAN: 1. Mr. Solitario is doing well from a post GA standpoint after in for GA with normal LV systolic function and stenting of his discrete critical distal RCA lesion april 09 2. His vertigo has responded to meclizine, but he still has significant symptoms worsen he has had in the past; I am suspicious that Brilinta is worsening his symptoms, so we will load with Plavix 300 this morning and given Plavix 75 g a day thereafter. 3. Given his generally ill feeling we will keep him overnight hopefully can discharge tomorrow if he is feeling better 4. Recommend follow-up with CV rehab 5. Continue Nasonex and guaifenesin 6. Benign right groin site Update April 12, 2017: 1. Mr. Solitario has only minimal improvement in his persistent dizziness/vertigo since yesterday. He did seem to improve some on meclizine and is now on Plavix rather than Brilinta. He additionally has developed some right facial numbness today. 2. Check CT brain with and without contrast and consult neurology 3. Change Coreg to Toprol 25 minutes twice daily 4. Hold diabetic medication, and Wellbutrin for now. 5. We will plan to keep till tomorrow and consider discharge if he is improved significantly. Current Visit: Yes Qualifiers: Involved coronary artery: right coronary artery Qualified Code(s): I21.11 - ST elevation (STEMI) myocardial infarction involving right coronary artery (2) Diabetes Status: Acute Current Visit: Yes (3) HTN (hypertension) Status: Acute Current Visit: Yes (4) Peptic ulcer Status: Acute Current Visit: Yes (5) Prostate CA Status: Acute Current Visit: Yes Cardiology - PN: Subj Interval history: Mr. Solitario says his dizziness/vertigo has improved a bit since yesterday but he still "needs to be pointed the side to help me walk". Today's had some right facial numbness. He has no weakness in his arms or legs and his speech is perfect. He is not any chest discomfort or shortness of breath. Exam (Progress Note) - Constitutional Vitals: Period Temp Pulse Resp BP Sys/Ruiz Pulse Ox Last 24 Hr 96 F-98.1 F 60-70 13-20 134-166/71-81 95-98 General appearance: normal weight, mild distress - Head Head exam: Present: normal inspection, normocephalic, atraumatic - Neck Neck exam: Present: normal inspection - Respiratory Respiratory exam: Present: clear to auscultation bilaterally. Absent: stridor, wheezes - Cardiovascular Cardiovascular exam: Present: regular rate and rhythm. Absent: diastolic murmur , rubs - GI/Abdominal GI/Abdominal exam: Present: soft. Absent: tenderness - Extremities Exam Extremities exam: Present: other (Right groin without bleeding bruit or hematoma ). Absent: edema - Neurological Exam Neurological exam: Present: alert, oriented X3, abnormal gait - Psychiatric Psychiatric exam: Present: other (Somewhat discouraged) Result/EKG - Labs CBC & BMP: 04/12/17 04:25 04/12/17 04:25 Labs: Laboratory Results - last 24 hr 04/11/17 04/11/17 04/11/17 11:52 17:09 20:21 WBC RBC Hgb Hct MCV MCH MCHC RDW Plt Count MPV Neut % (Auto) Lymph % (Auto) [place] % (Auto) Eos % (Auto) Baso % (Auto) Neut # (Auto) Lymph # (Auto) [place] # (Auto) Eos # (Auto) Baso # (Auto) Immature Gran % Nucleated RBC % Immature Gran # Nucleated RBCs # Sodium Potassium Chloride Carbon Dioxide Anion Gap BUN Creatinine GFR Calculation BUN/Creatinine Ratio Glucose POC Glucose 227 H 178 H 255 H Calculated Osmolality Calcium Magnesium 04/12/17 04/12/17 04/12/17 04:25 04:25 06:51 WBC 7.1 RBC 5.07 Hgb 14.5 Hct 43.9 MCV 86.6 L MCH 29 MCHC 33.0 RDW 15.1 Plt Count 121 L MPV 12.9 H Neut % (Auto) 71.9 Lymph % (Auto) 15.2 L [place] % (Auto) 10.5 Eos % (Auto) 1.0 Baso % (Auto) 0.8 Neut # (Auto) 5.1 Lymph # (Auto) 1.1 L [place] # (Auto) 0.8 Eos # (Auto) 0.1 Baso # (Auto) 0.1 Immature Gran % 0.6 Nucleated RBC % 0.0 Immature Gran # 0.04 Nucleated RBCs # 0.00 Sodium 143 Potassium 3.5 Chloride 109 H Carbon Dioxide 24 Anion Gap 13.5 BUN 24 H Creatinine 0.90 GFR Calculation 111 BUN/Creatinine Ratio 26.00 H Glucose 216 H POC Glucose 199 H Calculated Osmolality 295.0 Calcium 9.0 Magnesium 2.3 Specialty Discharge - Follow Up or Referrals
--- NOTE | 2017-04-12 11:29 | CT Report ---
CT brain Indication: Vertigo, facial numbness Comparison: None available Technique: Axial CT imaging of the brain is performed without and with intravenous contrast with 3 mm increments. Contrast doses 80 cc [id number]. Findings: No evidence of hemorrhage, mass mass effect midline shift or acute infarct seen. The brain parenchyma attenuation and differentiation appears within normal limits. The ventricles and cisterns are normal in caliber. No cranial or skull base abnormality is identified. No areas of abnormal enhancement are seen on the postcontrast images compared to the precontrast study. Impression: No evidence of abnormality demonstrated. This CT exam was performed using one or more the following dose reduction techniques: Automated exposure control, adjustment of the MA and/or KV according to patient size, or use of iterative reconstruction technique. PROCEDURE INTERPRETED AT [facility] DEPARTMENT OF RADIOLOGY Final Report Signed by: Dr. Bunny Turner
[2017-04-12] MEDS: NON-FORMULARY MEDICATION (Dapagliflozin Propanediol [Farxiga] 10 MG) PO SCH ×3 (12:44→13:04)
[2017-04-12] MEDS: METOPROLOL SUCCINATE XL 25 MG TABLET PO SCH (21:36)
[2017-04-13 04:22] LABS: Basophils # 0.1 10*3/uL (0.0-0.2); Eosinophils # 0.2 10*3/uL (0.0-0.87); Eosinophils % 2.1 % (0.00-10.9); Hematocrit 44.9 VOL% (42.0-52.0); Hemoglobin 14.7 GM/DL (14.0-18.0); Immature Granulocytes % 0.7 %; Immature Granulocytes Absolute 0.05 #; Lymphocytes # 1.2 10*3/uL (1.4-4.0); Lymphocytes % 16.2 % (21.2-54.2); Mean Corpuscular HGB Conc 32.7 GM/DL (32-36); Mean Corpuscular Hemoglobin 29 PG (27-34); Mean Platelet Volume 12.3 FL (9.6-12.0); Monocytes # 0.7 10*3/uL (0.11-0.8); Monocytes % 10.1 % (1.7-12.7); Neutrophils % 69.9 % (38.7-73.9); Platelet Count 116 T/CUMM (130-400); Red Blood Count 5.16 MC/CUMM (3.8-5.5); White Blood Count 7.2 T/CUMM (4-12)
[2017-04-13 04:50] LABS: Magnesium 2.2 MG/DL (1.8-2.4); Potassium 3.5 MMOL/L (3.5-5.1)
[2017-04-13 08:10] VITALS: BP 176/89
[2017-04-13] MEDS: INSULIN REGULAR 100 UNIT/ML SUBCUT SCH (08:47)
[2017-04-13] MEDS: ROSUVASTATIN 20 MG TABLET PO SCH (08:49)
[2017-04-13] MEDS: ASPIRIN EC 81 MG TABLET PO SCH (08:49)
[2017-04-13] MEDS: METOPROLOL SUCCINATE XL 25 MG TABLET PO SCH (08:49)
[2017-04-13] MEDS: CLOPIDOGREL 75 MG TABLET PO SCH (08:49)
[2017-04-13] MEDS: MECLIZINE 25 MG TABLET PO SCH (08:49)
[2017-04-13] MEDS: VALSARTAN 80 MG TABLET PO SCH (08:49)
[2017-04-13] MEDS: MOMETASONE 50 MCG NASAL SPRAY 17 GM BOTTLE BOTH NARES SCH (08:52)
--- NOTE | 2017-04-13 08:53 | Discharge Summary ---
Hospital Course - Hospital Course Hospital Course: Mr. Solitario was admitted with inferior myocardial infarction with stenting of his critical distal right coronary lesion with drug-eluting stent. He had diffuse 60% disease in the LAD which is treated medically for the time being. He actually had normal LV function ejection fraction of 60% with mild inferobasal hypokinesis. He has done very well from a cardiac standpoint, but had vertigo which would not resolve. He got a little better with meclizine. He reports he had this before but it was worse than it had been in the past. I change his Brilinta to Plavix in case that was aggravating it. I finally got a CT of the brain April 12 which was basically normal. He feels fine this morning in bed but feels like it may be aggravated if he gets up and moves around. At this point he prefers to go home and we will pursue an outpatient workup for this. His blood pressure is been intermittently elevated probably related to discomfort from his vertigo. His access site is without bleeding or bruit. At this time I believe he is received maximal hospital benefit discharged home. Diagnosis - Discharge Diagnosis (1) STEMI (ST elevation myocardial infarction) Status: Acute (2) Diabetes Status: Acute (3) HTN (hypertension) Status: Acute (4) Peptic ulcer Status: Acute (5) Prostate CA Status: Acute Specialty Discharge - Follow Up or Referrals Follow up with: Juan Hanson MD [Physician] - 1 Week Jean-Pierre Paniagua DO [Physician] - 1 Week (persistent vertigo; s/p mi) Discharge Plan - Discharge Medications No Action amLODIPine [Norvasc] 10 mg PO DAILY Valsartan/Hydrochlorothiazide [Diovan Hct 160-25 mg Tablet] 1 each PO DAILY traZODone [Desyrel] 50 mg PO BEDTIME Dapagliflozin Propanediol [Farxiga] 10 mg PO DAILY Terazosin [Hytrin] 10 mg PO BEDTIME Sertraline [Zoloft] 100 mg PO BEDTIME buPROPion XL [Wellbutrin Xl] 150 mg PO DAILY Omeprazole [Prilosec] 20 mg PO DAILY Simvastatin [Zocor] 80 mg PO DAILY Dapagliflozin/Metformin HCl [Xigduo Xr 5 mg-1,000 mg Tablet] 2 each PO AC BREAKFAST Metoprolol Tartrate 100 mg PO DAILY - Follow Up or Referral Follow Up: Juan Hanson MD [Physician] - 1 Week - Forms/Instructions Instructions: Myocardial Infarction (GEN), Left Heart Catheterization (DC), Heart Healthy Diet (GEN), Coronary Intravascular Stent Placement (DC) Exam - Constitutional Vitals: Period Temp Pulse Resp BP Sys/Ruiz Pulse Ox Last 24 Hr 97 F-98.0 F 58-70 17-20 133-176/77-93 94-98 General appearance: normal weight, no acute distress - Head Head exam: Present: normal inspection, normocephalic, atraumatic - Neck Neck exam: Present: normal inspection - Respiratory Respiratory exam: Present: clear to auscultation bilaterally. Absent: stridor, wheezes - Cardiovascular Cardiovascular exam: Present: regular rate and rhythm. Absent: bradycardia, diastolic murmur, rubs - GI/Abdominal GI/Abdominal exam: Present: soft. Absent: tenderness - Extremities Exam Extremities exam: Absent: edema - Neurological Exam Neurological exam: Present: alert, oriented X3 - Psychiatric Psychiatric exam: Present: flat affect Discharge Results Procedures and tests throughout hospitalization: Pending Orders 04/14/17 04:00 BMP w/ Mg [Basic Metabolic Panel w/Mg] IN AM CBC [Comp Blood Count Auto Diff] IN AM Labs on day of discharge: Labs from last 24 hours 04/13/17 04/13/17 04/13/17 07:13 03:42 03:42 WBC 7.2 RBC 5.16 Hgb 14.7 Hct 44.9 MCV 87.0 MCH 29 MCHC 32.7 RDW 15.0 Plt Count 116 L MPV 12.3 H Neut % (Auto) 69.9 Lymph % (Auto) 16.2 L [place] % (Auto) 10.1 Eos % (Auto) 2.1 Baso % (Auto) 1.0 H Neut # (Auto) 5.0 Lymph # (Auto) 1.2 L [place] # (Auto) 0.7 Eos # (Auto) 0.2 Baso # (Auto) 0.1 Immature Gran % 0.7 Nucleated RBC % 0.0 Immature Gran # 0.05 Nucleated RBCs # 0.00 Sodium 143 Potassium 3.5 Chloride 110 H Carbon Dioxide 24 Anion Gap 12.5 BUN 23 H Creatinine 0.90 GFR Calculation 110 BUN/Creatinine Ratio 25.00 H Glucose 217 H POC Glucose 246 H Calculated Osmolality 295.0 Calcium 9.0 Magnesium 2.2 04/12/17 04/12/17 04/12/17 19:58 15:25 11:43 WBC RBC Hgb Hct MCV MCH MCHC RDW Plt Count MPV Neut % (Auto) Lymph % (Auto) [place] % (Auto) Eos % (Auto) Baso % (Auto) Neut # (Auto) Lymph # (Auto) [place] # (Auto) Eos # (Auto) Baso # (Auto) Immature Gran % Nucleated RBC % Immature Gran # Nucleated RBCs # Sodium Potassium Chloride Carbon Dioxide Anion Gap BUN Creatinine GFR Calculation BUN/Creatinine Ratio Glucose POC Glucose 251 H 238 H 273 H Calculated Osmolality Calcium Magnesium DS: Provider Date of admission: 04/09/17 09:26 Primary care physician: . No PCP Attending physician on admission: Juan Rosado Consults: 04/09/17 08:42 Consult to Cardiac Rehabilitation [CONS] Routine Reason for Cardiac Rehabilitation: Appt Out Pt Cardiac Rehab Consult Comment: stemi; stent 04/12/17 10:47 Consult to Physician [CONS] Routine Comment: s/p [place], persistent sever dizziness/facial numbness Consulting Provider: Mario Quan Discharging clinician: Juan Rosado
[2017-04-13] MEDS: PANTOPRAZOLE 40 MG TABLET PO SCH (09:15)
== END 2017-04-13 11:40 | disposition home or self-care (01) | DRG 247 ==
LOC: N.CL 08:16 → N.CC 09:26 → N.TELES 04-10 11:49
PROVIDERS: ADMIT Internal Medicine Cardiovascular Disease; ATTEND Internal Medicine Cardiovascular Disease
PROC: CLCCHCL (ICD-10-PCS; 2017-04-09 08:15)

== ENCOUNTER 2021-04-23 13:06 | Inpatient (IN) ==
[2021-04-23 14:41] LABS: Basophils % 0.6 % (0.0-0.8); Eosinophils # 0.1 10*3/uL (0.0-0.87); Eosinophils % 1.2 % (0.00-10.9); Hematocrit 43.6 VOL% (42.0-52.0); Hemoglobin 13.9 GM/DL (14.0-18.0); Immature Granulocytes % 0.6 %; Immature Granulocytes Absolute 0.04 #; Lymphocytes # 1.1 10*3/uL (1.4-4.0); Lymphocytes % 16.2 % (21.2-54.2); Mean Corpuscular HGB Conc 31.9 GM/DL (32-36); Mean Corpuscular Volume 89.2 FL (87-102); Mean Platelet Volume 13.2 FL (9.6-12.0); Monocytes % 9.1 % (1.7-12.7); Neutrophils % 72.3 % (38.7-73.9); Platelet Count 124 T/CUMM (130-400); Red Blood Count 4.89 MC/CUMM (3.8-5.5); Red Cell Distribution Width 14.6 % (9.3-17.3); White Blood Count 6.6 T/CUMM (4-12)
[2021-04-23 15:06] LABS: Alanine Aminotransferase 45 U/L (16-61); Albumin 3.6 G/DL (3.4-5.0); Alkaline Phosphatase 71 U/L (45-117); Aspartate Amino Transferase 40 U/L (0-37); Bilirubin,Total < 0.39 MG/DL (0.2-1.0); Blood Urea Nitrogen 19 MG/DL (7-18); Calcium 9.2 MG/DL (8.5-10.1); Carbon Dioxide 24 MMOL/L (21-32); Estimated Glom Filtration Rate 87 ML/MIN; Glucose 183 MG/DL (74-106); Osmolality,Calculated 285.4 MOS/KG (273-304); Potassium 4.2 MMOL/L (3.5-5.1); Sodium 140 MMOL/L (136-145); Total Protein 7.3 G/DL (6.4-8.2)
[2021-04-23] MEDS ORDERED: GLUCAGON 1 MG VIAL IM PRN (15:38)
[2021-04-23] MEDS ORDERED: DEXTROSE 50% 25 GM/50 ML VIAL IV PRN (15:38)
[2021-04-23] MEDS ORDERED: ONDANSETRON 4 MG/2 ML VIAL IV PRN (15:38)
[2021-04-23] MEDS ORDERED: MENTHOL TOP PRN (15:40)
[2021-04-23] MEDS ORDERED: NITROGLYCERIN SL 0.4 MG TABLET SL PRN (15:40)
[2021-04-23] MEDS ORDERED: [UNRECOGNIZED DRUG - OTHER] PO PRN (15:40)
[2021-04-23] MEDS ORDERED: CAPSAICIN TOP PRN (15:40)
[2021-04-23] MEDS ORDERED: GABAPENTIN 300 MG CAPSULE PO SCH (17:00)
[2021-04-23 17:12] LABS: INR 1.2; PT Patient Result 12.9 SECS (10.5-12.0); Partial Thromboplastin Time 25.9 SECS (23.9-33.8)
[2021-04-23] MEDS: LACTATED RINGERS 1,000 ML IV SCH ×2 (19:00→22:40)
[2021-04-23] MEDS ORDERED: CARBOXYMETHYLCELLULOSE 1% OPH SOLN BOTH EYES PRN (19:16)
[2021-04-23] MEDS ORDERED: NON-FORMULARY MEDICATION (Omeprazole 20 mg capsule,delayed release(DR/EC)) PO SCH (21:00)
[2021-04-23] MEDS: GABAPENTIN 300 MG CAPSULE PO SCH (22:40)
[2021-04-23] MEDS: ROSUVASTATIN 20 MG TABLET PO SCH (22:40)
[2021-04-23] MEDS: traZODone 50 MG TABLET PO SCH (22:40)
[2021-04-23] MEDS: ENOXAPARIN 40 MG/0.4 ML SYRINGE SUBCUT SCH (22:41)
[2021-04-23] MEDS: MONTELUKAST 10 MG TABLET PO SCH (22:41)
[2021-04-23] MEDS: OMEGA 3 ACID ETHYL ESTERS 1 GM CAPSULE PO SCH (22:41)
[2021-04-24] MEDS: LACTATED RINGERS 1,000 ML IV SCH ×3 (02:35→16:57)
[2021-04-24 04:05] LABS: Basophils % 0.7 % (0.0-0.8); Eosinophils # 0.2 10*3/uL (0.0-0.87); Eosinophils % 2.9 % (0.00-10.9); Hematocrit 40.9 VOL% (42.0-52.0); Hemoglobin 13.2 GM/DL (14.0-18.0); Immature Granulocytes % 0.4 %; Immature Granulocytes Absolute 0.02 #; Lymphocytes # 1.5 10*3/uL (1.4-4.0); Lymphocytes % 27.1 % (21.2-54.2); Mean Corpuscular HGB Conc 32.3 GM/DL (32-36); Mean Corpuscular Volume 90.1 FL (87-102); Mean Platelet Volume 12.6 FL (9.6-12.0); Monocytes % 12.6 % (1.7-12.7); Neutrophils % 56.3 % (38.7-73.9); Platelet Count 113 T/CUMM (130-400); Red Blood Count 4.54 MC/CUMM (3.8-5.5); Red Cell Distribution Width 14.6 % (9.3-17.3); White Blood Count 5.5 T/CUMM (4-12)
[2021-04-24 04:58] LABS: Albumin 3.2 G/DL (3.4-5.0); Bilirubin,Total 0.9 MG/DL (0.2-1.0); Calcium 9.1 MG/DL (8.5-10.1); Osmolality,Calculated 287.1 MOS/KG (273-304); Potassium 3.9 MMOL/L (3.5-5.1); Risk Ratio 3.6; Thyroid Stimulating Hormone 0.585 uIU/ml (0.358-3.74); Total Protein 6.8 G/DL (6.4-8.2); VLDL CHOLESTEROL 102.2 MG/DL
[2021-04-24] MEDS ORDERED: GLUCAGON 1 MG VIAL IM PRN (07:27)
[2021-04-24] MEDS ORDERED: DEXTROSE 50% 25 GM/50 ML VIAL IV PRN (07:27)
[2021-04-24] MEDS: INSULIN LISPRO 100 UNIT/ML SUBCUT SCH ×4 (07:52→21:52)
[2021-04-24] MEDS: OMEGA 3 ACID ETHYL ESTERS 1 GM CAPSULE PO SCH ×2 (09:44→20:50)
[2021-04-24] MEDS: EZETIMIBE 10 MG TABLET PO SCH (09:44)
[2021-04-24] MEDS: CLOPIDOGREL 75 MG TABLET PO SCH (09:44)
[2021-04-24] MEDS: OLMESARTAN 20 MG TABLET PO SCH (09:44)
[2021-04-24] MEDS: PANTOPRAZOLE 40 MG TABLET PO SCH (09:44)
[2021-04-24] MEDS: SERTRALINE 50 MG TABLET PO SCH (09:44)
[2021-04-24] MEDS: ASPIRIN EC 81 MG TABLET PO SCH (09:44)
[2021-04-24] MEDS: NEBIVOLOL 5 MG TABLET PO SCH (09:45)
[2021-04-24] MEDS: GABAPENTIN 300 MG CAPSULE PO SCH ×4 (09:45→20:50)
[2021-04-24] MEDS: RIVAROXABAN 20 MG TABLET PO SCH (09:45)
[2021-04-24] MEDS: MONTELUKAST 10 MG TABLET PO SCH (20:50)
[2021-04-24] MEDS: traZODone 50 MG TABLET PO SCH (20:50)
[2021-04-24] MEDS: ROSUVASTATIN 20 MG TABLET PO SCH (20:50)
[2021-04-24] MEDS: ENOXAPARIN 40 MG/0.4 ML SYRINGE SUBCUT SCH (20:50)
[2021-04-25 06:06] LABS: Calcium 9.4 MG/DL (8.5-10.1); Potassium 4.1 MMOL/L (3.5-5.1)
[2021-04-25] MEDS ORDERED: INSULIN GLARGINE 100 UNIT/ML SUBCUT SCH (09:00)
[2021-04-25] MEDS: ASPIRIN EC 81 MG TABLET PO SCH (09:07)
[2021-04-25] MEDS: OLMESARTAN 20 MG TABLET PO SCH (09:08)
[2021-04-25] MEDS: EZETIMIBE 10 MG TABLET PO SCH (09:08)
[2021-04-25] MEDS: GABAPENTIN 300 MG CAPSULE PO SCH ×3 (09:08→17:38)
[2021-04-25] MEDS: RIVAROXABAN 20 MG TABLET PO SCH (09:08)
[2021-04-25] MEDS: CLOPIDOGREL 75 MG TABLET PO SCH (09:08)
[2021-04-25] MEDS: PANTOPRAZOLE 40 MG TABLET PO SCH (09:09)
[2021-04-25] MEDS: SERTRALINE 50 MG TABLET PO SCH (09:09)
[2021-04-25] MEDS: OMEGA 3 ACID ETHYL ESTERS 1 GM CAPSULE PO SCH (09:09)
[2021-04-25] MEDS: NEBIVOLOL 5 MG TABLET PO SCH (09:09)
[2021-04-25] MEDS: INSULIN LISPRO 100 UNIT/ML SUBCUT SCH ×4 (10:41→18:27)
[2021-04-25 16:43] VITALS: BP 175/81
[2021-04-26] MEDS ORDERED: ASPIRIN EC 325 MG TABLET PO SCH (09:00)
[2021-04-30] MEDS ORDERED: ERGOCALCIFEROL 50,000 UNIT CAPSULE PO SCH (09:00)
== END 2021-04-25 19:05 | disposition home or self-care (01) | DRG 65 ==
LOC: EDUNIT# → N.ED 13:06 → SUATTDRO 15:38 → N.EDINP 15:38 → N.TELEN 18:35
PROVIDERS: ADMIT Family Medicine; ATTEND Internal Medicine Geriatric Medicine